=== PATIENT | female | born 1990 | race Caucasian/White ===

== ENCOUNTER 2021-08-10 05:06 | Observation (INO) | payer MEDICAID, SELFPAY ==
[2021-08-10 05:16] VITALS: BP 150/90; PULSE 88; RESP 18; TEMP 36.6; O2SAT 97
[2021-08-10 05:41] LABS: Abs Immature Grans 0.05 10^3/uL (0.0-0.06); Absolute Basophil Count 0.05 10^3/uL (0.0-0.2); Absolute Eosinophil Count 0.15 10^3/uL (0.0-0.7); Absolute Lymphocyte Count 2.98 10^3/uL (1.2-3.4); Absolute Monocyte Count 0.96 10^3/uL (0.1-0.8); Basophils % 0.4; Eosinophils % 1.1; HCT 42.7 % (36.0-46.0); HGB 13.8 g/dL (11.2-15.7); Immature Grans % 0.4; Lymphocytes % 21.8; MCH 27.7 pg (27.0-33.0); MCHC 32.3 % (32.0-36.0); MCV 86 fL (80-95); MPV 9.8 fL (8.0-11.0); Neutrophils % 69.3; Platelet Count 308 10^3/uL (130-400); RBC 4.99 10^6/uL (3.93-5.22); RDW 13.5 % (11.7-14.6); RDW-SD 42.1 fL; WBC 13.67 10^3/uL (4.4-10.8)
[2021-08-10 05:42] LABS: Absolute Neutrophil Count 9.47 10^3/uL (1.2-6.7)
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
[2021-08-10 06:01] LABS: Salicylate 3.7 mg/dL (<2.8)
[2021-08-10 06:03] LABS: Acetaminophen < 2 ug/mL (10-30)
[2021-08-10 06:06] LABS: ALT 43 U/L (14-59); AST 28 U/L (15-37); Albumin 3.6 g/dL (3.4-5.0); Alkaline Phosphatase 100 U/L (46-116); Anion Gap 8.1 mmol/L (3-11); BUN 10 mg/dL (7-18); Bilirubin, Total 0.5 mg/dL (0.2-1.0); CO2 28.9 mmol/L (21.0-32.0); CREATININE 0.7 mg/dL (0.55-1.02); Calcium 8.9 mg/dL (8.5-10.1); Chloride 102 mmol/L (98-107); Glucose 90 mg/dL (74-106); Potassium 3.1 mmol/L (3.5-5.1); Sodium 139 mmol/L (136-145); TSH (W/Ref FT4) 1.79 uIU/mL (0.36-3.74); Total Protein 7.4 g/dL (6.4-8.2)
[2021-08-10 06:11] LABS: ETHANOL BLOOD < 3.0 mg/dL (<10)
--- NOTE | 2021-08-10 09:23 | ED.PROG_ITS ---
Date of service: 08/10/21 Time of Service: 08:25 Medical Decision Making pt with psychosis and has flight of ideas and irrational thinking, no si/hi currently voluntary. Will continue to monitor until psych placement is found pt seen again by mental health and do not feel she should be on voluntary status given her irrational thoughts. Asked patient if she is willing to seek voluntary placement and she would not give a sensical answer so EE was done. Sign Out Sign Out Data: Sign Out Comment: Psychotic episode, mental health will reassess. Patient currently here voluntarily, but should not be allowed to leave secondary to acute psychosis Last updated by Vito Quintana DO at 08/10/21 07:53 Discharge Plan Disposition Patient Disposition: STILL A PATIENT Condition: Stable Discharge Details Clinical Impression: Psychosis Primary Care Provider: Tosha,[facility] ED Provider: Stephen Elliott Home Meds and New Rx's Prescriptions: No Action No Known Home Meds
--- NOTE | 2021-08-10 10:03 | CMSP_ITS ---
- If Service Date Differs Date of service: 08/10/21 Time of Service: 10:03 Care Management Safety Plan Status: Voluntary - Reason for Wait Reason for Wait: Inpatient Admission VOLUNTARY FOR INPATIENT PSYCHIATRIC STABILIZATION. Patient is appropriate in all interactions since arriving at [facility]; Pt has demonstrated appropriate coping and communication skills, has articulated his or her needs and concerns and is fully engaged during staff interactions. A huddle is held at 10:[address] Elliott, ED provider, Akanksha, nursing supervisor travel trailer, Tatianna, charge nurse, SANGEETHA Jones, and ERNIE Pelayo, in attendance. Safety plan has been established with patient, and care team, to adhere to patient goals, identify restrictions based on behavioral status, address nutrition, and determine allowed personal belongings, tools for hygiene and personal care. Determine level of activity including ambulation, level of supervision, visitors, and determine privileges based on behaviors and level of engagement by pt. SAFETY PLAN: 1. Will remain on suicide precautions. In Paper Clothes 2. Will remain in room under direct supervision of one-on-one staff at all times provided by CPSO, BISHOP, TIRE SERVICE SUPERVISOR arbitrator. 3. May have paper cups, plates, finger foods as well as a cardboard spoon with which to eat meals. 4. Follow [facility] Management of the Admitted Behavioral Health Patient policy. 5. Comfort bath system only. 6. No personal belongings. 7. Visitors-none at this time. 8. Activities: soft cart items, music tablet, television, and other activities at RN discretion. 9. Bathroom privileges with escort in the ED, available in room without limitation on M/S. 10. Phone: may use [employer] phone at RN discretion. 11. Due to VOLUNTARY status, if patient wishes to leave [facility], staff will contact [facility] Crisis Screener ([phone]) and On-Call Music Composition Teacher ([phone]) as soon as possible. In the event of elopement, notify [facility] Police ([phone]). Patient is currently voluntarily at [facility] and seeking inpatient admission when a bed becomes available. [facility] Frontline Chief Electrician will continue seeking placement. Please contact the Support Specialist Music Composition Teacher ([phone]) and [facility] Chief Electrician ([phone]) for any needed changes in the Safety Plan. Safety plan has been provided to interdepartmental care team.
[2021-08-10 12:18] LABS: Bilirubin Negative (Negative); Blood Negative (Negative); Clarity Clear (Clear); Glucose Negative (Negative); Ketones 40 mg/dL (Negative); Leukocyte Esterase Negative (Negative); Nitrite Negative (Negative); Specific Gravity 1.025 (1.005-1.025); Urobilinogen 0.2 EU/dL (Up TO 0.2); pH 6.5 (5-8)
[2021-08-10 12:34] LABS: *AMPHETAMINES SCREEN URINE Negative (Negative); *BARBITURATES SCREEN URINE Negative (Negative); *BENZODIAZEPINES SCREEN URINE Negative (Negative); Cannabinoids THC Negative (Negative); Cocaine Screen,Urine Negative (Negative); METHADONE URINE SCREEN Negative (Negative); OPIATES URINE SCREEN Negative (Negative)
[2021-08-10 12:35] LABS: Tricyclic Antidepressants Negative (Negative)
--- NOTE | 2021-08-10 13:38 | CMSP_ITS ---
- If Service Date Differs Date of service: 08/10/21 Time of Service: 13:38 Care Management Safety Plan Status: Involuntary - Reason for Wait Reason for Wait: Inpatient Admission INVOLUNTARY FOR INPATIENT PSYCHIATRIC STABILIZATION. Safety plan has been established to meet the needs of the patient, and consideration of the care team, to adhere to patient goals, identify restrictions based on behavioral status, address nutrition, and determine allowed personal belongings, tools for hygiene and personal care. Determine level of activity including ambulation, level of supervision, visitors, and determine privileges based on behaviors and level of engagement by pt. SAFETY PLAN: 1. Will remain on SI/HI precautions. In Paper Clothes 2. Will remain in room under direct supervision of one-on-one staff at all times provided by CPSO, LENS COATING TECHNICIAN, RETORT FURNACE HELPER information technology manager. 3. May have paper cups, plates, finger foods as well as a cardboard spoon with which to eat meals. 4. Follow [facility] Management of the Admitted Behavioral Health Patient policy. 5. Comfort bath system only. 6. No personal belongings 7. Visitors: No visitors at this time. 8. Activities: Soft cart items, music tablet, television, and other activities at RN discretion. 9. Bathroom privileges with escort in the ED. 10. Phone: May use [employer] phone at RN discretion. 11. Due to INVOLUNTARY status, patient is being held at [facility] by the Department of Mental Health ([facility]) until 2nd certification by [facility] Psychiatrist can be performed (within 24 hours). Staff will provide de-escalation support (CPI) as needed. If patient wishes to leave [facility], staff will contact [facility] Crisis Screener ([phone]) and On-Call Bottle Filler ([phone]) as soon as possible. In the event of elopement, notify [place] State Police ([phone]). Patient is currently involuntarily at [facility]. [facility] Frontline Air Pollution Analyst will continue seeking placement. Please contact the Program Director Air Talent Bottle Filler ([phone]) for any needed changes to Safety Plan. Safety plan has been provided to interdepartmental care team. Patient will be transported by [facility] at time of discharge.
--- NOTE | 2021-08-10 13:38 | PDOC.CMSAFED ---
- If Service Date Differs Date of service: 08/10/21 Time of Service: 13:38 Care Management Safety Plan Status: Involuntary - Reason for Wait Reason for Wait: Inpatient Admission INVOLUNTARY FOR INPATIENT PSYCHIATRIC STABILIZATION. Safety plan has been established to meet the needs of the patient, and consideration of the care team, to adhere to patient goals, identify restrictions based on behavioral status, address nutrition, and determine allowed personal belongings, tools for hygiene and personal care. Determine level of activity including ambulation, level of supervision, visitors, and determine privileges based on behaviors and level of engagement by pt. SAFETY PLAN: 1. Will remain on SI/HI precautions. In Paper Clothes 2. Will remain in room under direct supervision of one-on-one staff at all times provided by CPSO, PROPERTY SITE MANAGER, PROCESS CONTROL PROGRAMMER port patrol officer. 3. May have paper cups, plates, finger foods as well as a cardboard spoon with which to eat meals. 4. Follow [facility] Management of the Admitted Behavioral Health Patient policy. 5. Comfort bath system only. 6. No personal belongings 7. Visitors: No visitors at this time. 8. Activities: Soft cart items, music tablet, television, and other activities at RN discretion. 9. Bathroom privileges with escort in the ED. 10. Phone: May use [employer] phone at RN discretion. 11. Due to INVOLUNTARY status, patient is being held at [facility] by the Department of Mental Health ([facility]) until 2nd certification by [facility] Psychiatrist can be performed (within 24 hours). Staff will provide de-escalation support (CPI) as needed. If patient wishes to leave [facility], staff will contact [facility] Crisis Screener ([phone]) and On-Call Oracle Applications Analyst ([phone]) as soon as possible. In the event of elopement, notify [place] State Police ([phone]). Patient is currently involuntarily at [facility]. [facility] Frontline Community Service Aide will continue seeking placement. Please contact the Doughnut Icer Machine Oracle Applications Analyst ([phone]) for any needed changes to Safety Plan. Safety plan has been provided to interdepartmental care team. Patient will be transported by [employer] at time of discharge.
[2021-08-10 18:26] LABS: Source Nasal/Nares
[2021-08-10 19:18] LABS: COVID-19 PCR Negative (Negative)
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
--- NOTE | 2021-08-11 02:28 | NUR.NOTE ---
Patient mother Zenia ModiGydq-[phone].Nursing Note:
[2021-08-11 08:55] VITALS: BP 129/90; PULSE 83; RESP 18; TEMP 36.6; O2SAT 94
--- NOTE | 2021-08-11 09:59 | PDOC.MHCN_ITS ---
Date of service: 08/11/21 Time of Service: 08:00 Mental Health Crisis Note Presenting Issue How did you arrive at the ED and why did you come: Client is on EE status per [facility] and [facility]. Precipitating Factors Client denies SI/HI, but is delusional. Disposition BEHAVIOR: Engaged, hostile, irritable EYE CONTACT: Minimal MOOD: Appears to be irritable. AFFECT: Flat. APPETITE: Client reports she is eating okay. SLEEP(trouble falling/staying asleep: Client reports waking up in the middle of the night. Plan Referrals have been sent to , [facility], [place], and [facility]. Client mother called last night to report this client was a [place] person [place] and is diagnosed with schizophrenia but unmedicated. Signature Clinician's Name/Title: Buffy Lennon ESC
--- NOTE | 2021-08-11 17:24 | PDOC.CMSAFED ---
- If Service Date Differs Date of service: 08/11/21 Time of Service: 17:24 Care Management Safety Plan Status: Involuntary - Reason for Wait Reason for Wait: Inpatient Admission Safety plan has been established to meet the needs of the patient, and consideration of the care team, to adhere to patient goals, identify restrictions based on behavioral status, address nutrition, and determine allowed personal belongings, tools for hygiene and personal care. Determine level of activity including ambulation, level of supervision, visitors, and determine privileges based on behaviors and level of engagement by pt. SAFETY PLAN: 1. Will remain on SI/HI precautions. In Paper Clothes 2. Will remain in room under direct supervision of one-on-one staff at all times provided by CPSO; BISHOP, HOME CARE MUSIC THERAPIST packaging inspector. 3. May have paper cups, plates, finger foods as well as a cardboard spoon 4. Follow [facility] Management of the Admitted Behavioral Health Patient policy. 5. Comfort bath system only. 6. No personal belongings 7. Visitors: No visitors at this time 8. Activities: Soft cart items, music tablet, television, and other activities at RN discretion. 9. Bathroom privileges with supervision 10. Phone: Danica use [employer] phone at nursing's discretion 11. Due to INVOLUNTARY status, patient is being held at [facility] by the Department of Mental Health ([facility]) until 2nd certification by [facility] Psychiatrist can be performed (within 24 hours). Staff will provide de-escalation support (CPI) as needed. If patient wishes to leave [facility], staff will contact [facility] Crisis Screener ([phone]) and On-Call Paper Handler ([phone]) as soon as possible. In the event of elopement, notify [place] State Police ([phone]). Patient is currently involuntarily at [facility]. [facility] Frontline Health Insurance Assessor will continue seeking placement. Please contact the Ip Litigation Associate Paper Handler ([phone]) for any needed changes to Safety Plan. Safety plan has been provided to interdepartmental care team. Patient will be transported by [facility] at time of discharge.
--- NOTE | 2021-08-11 18:38 | CMPROGNOTE_ITS ---
- If Service Date Differs Date of service: 08/11/21 Time of Service: 18:38 Care Management Progress Note S/O: Nelson was sitting up in bed when CM met with her. She has been cooperative with staff and is eating and sleeping well. She was pleasant and appropriate in her interaction with CM, maintaining good eye contact. No beds are currently available at any of the [place] psychiatric hospitals. Per [facility], Nelson has been reported as a missing person in [place]. This information was reportedly received from Nelson's mother today. P: Nelson is awaiting placement at a psychiatric hospital in [place]. She is in Involuntary status. No beds are currently available.
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
--- NOTE | 2021-08-11 21:59 | PDOC.MHCN_ITS ---
Date of service: 08/11/21 Time of Service: 20:45 Mental Health Crisis Note Presenting Issue How did you arrive at the ED and why did you come: Patient is currently on involuntary status and awaiting placement. Declared as missing person in NH with dx of schizophrenia. 2nd [facility] screening. Precipitating Factors Client denied SI/HI - she knocked over telehealth device on suicide inquiry and full assessment could not be completed. Disposition BEHAVIOR: Uncooperative EYE CONTACT: Poor MOOD: Labile AFFECT: Labile APPETITE: N/A SLEEP(trouble falling/staying asleep: N/A Plan The patient will remain at [facility] on involuntary status and await recommended treatment. She will be assessed two times per day by [facility] until placement is secured. If acuity level decreases safety discharge planning back to the community can be considered per discretion of [facility]MHP and attending medical provider. Signature Clinician's Name/Title: Lincoln Willis [facility] clinician / [facility]
--- NOTE | 2021-08-12 12:40 | NUR.NOTE ---
pt had her consult with mental health. pts mom is here and in hopes of visiting her daughter. Amanda is going to check with her boss and change the safety plan to accomadate mom in the visitor list r Nursing Note:
--- NOTE | 2021-08-12 16:44 | CMSP_ITS ---
- If Service Date Differs Date of service: 08/12/21 Time of Service: 16:44 Care Management Safety Plan Status: Involuntary - Guarianship if Applicable Guardianship: Other - Reason for Wait Reason for Wait: Inpatient Admission Safety plan has been established to meet the needs of the patient, and consideration of the care team, to adhere to patient goals, identify restrictions based on behavioral status, address nutrition, and determine allowed personal belongings, tools for hygiene and personal care. Determine level of activity including ambulation, level of supervision, visitors, and determine privileges based on behaviors and level of engagement by pt. SAFETY PLAN: 1. Will remain on SI/HI precautions. In Paper Clothes 2. Will remain in room under direct supervision of one-on-one staff at all times provided by CPSO; BISHOP, DOCUMENT REVIEW SPECIALIST glass blowing instructor. 3. May have paper cups, plates, finger foods as well as a cardboard spoon 4. Follow [facility] Management of the Admitted Behavioral Health Patient policy. 5. Comfort bath system. May shower at nursing's discretion with supervision. 6. No personal belongings 7. Visitors: Mother may visit. 8. Activities: Soft cart items, music tablet, television, and other activities at RN discretion. 9. Bathroom privileges with supervision 10. Phone: May use [employer] phone at nursing's discretion. 11. Due to INVOLUNTARY status, patient is being held at [facility] by the Department of Mental Health ([facility]) until 2nd certification by [facility] Psychiatrist can be performed (within 24 hours). Staff will provide de-escalation support (CPI) as needed. If patient wishes to leave [facility], staff will contact [facility] Crisis Screener ([phone]) and On-Call Customer Service Leader ([phone]) as soon as possible. In the event of elopement, notify [place] [employer] ([phone]). Patient is currently involuntarily at [facility]. [facility] Frontline Fur Tanner will continue seeking placement. Please contact the Web Marketing Strategist Customer Service Leader ) for any needed changes to Safety Plan. Safety plan has been provided to interdepartmental care team. Patient will be transported by [employer] at time of discharge.
--- NOTE | 2021-08-12 16:44 | PDOC.CMSAFED ---
- If Service Date Differs Date of service: 08/12/21 Time of Service: 16:44 Care Management Safety Plan Status: Involuntary - Guarianship if Applicable Guardianship: Other - Reason for Wait Reason for Wait: Inpatient Admission Safety plan has been established to meet the needs of the patient, and consideration of the care team, to adhere to patient goals, identify restrictions based on behavioral status, address nutrition, and determine allowed personal belongings, tools for hygiene and personal care. Determine level of activity including ambulation, level of supervision, visitors, and determine privileges based on behaviors and level of engagement by pt. SAFETY PLAN: 1. Will remain on SI/HI precautions. In Paper Clothes 2. Will remain in room under direct supervision of one-on-one staff at all times provided by CPSO; BISHOP, CREW MESS ATTENDANT multiple tube winding machine operator. 3. May have paper cups, plates, finger foods as well as a cardboard spoon 4. Follow [facility] Management of the Admitted Behavioral Health Patient policy. 5. Comfort bath system. May shower at nursing's discretion with supervision. 6. No personal belongings 7. Visitors: Mother may visit. 8. Activities: Soft cart items, music tablet, television, and other activities at RN discretion. 9. Bathroom privileges with supervision 10. Phone: May use [employer] phone at nursing's discretion. 11. Due to INVOLUNTARY status, patient is being held at [facility] by the Department of Mental Health ([facility]) until 2nd certification by [facility] Psychiatrist can be performed (within 24 hours). Staff will provide de-escalation support (CPI) as needed. If patient wishes to leave [facility], staff will contact [facility] Crisis Screener ([phone]) and On-Call Freight Coordinator ([phone]) as soon as possible. In the event of elopement, notify [place] State [employer] ([phone]). Patient is currently involuntarily at [facility]. [facility] Frontline Online Content Coordinator will continue seeking placement. Please contact the Hardwood Floor Installation Helper Freight Coordinator ([phone]) for any needed changes to Safety Plan. Safety plan has been provided to interdepartmental care team. Patient will be transported by [employer] at time of discharge.
--- NOTE | 2021-08-12 16:47 | CMPROGNOTE_ITS ---
- If Service Date Differs Date of service: 08/12/21 Time of Service: 16:47 Care Management Progress Note S/O: Nelson was sitting up in bed when CM met with her. She has been cooperative with staff and compliant with rules and routines. She did have a brief period where she became upset when she was not able to use the bathroom when she needed to (occupied) but was able to be redirected. Nelson's mother came to visit today and Nelson shared that she enjoyed the visit. Her mother is a strong source of support for her. Apparently her mother informed the ED staff that Nelson is in the custody of the state [facility]. It is not clear in what capacity. Her mother also shared that she was hospitalized once. She will try to remember the name of the hospital so that records can be obtained. P: Nelson is awaiting placement at a psychiatric hospital in [place]. She is in Involuntary status. No beds are currently available. - Guardianship if Applicable Guardianship: Other
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
--- NOTE | 2021-08-13 01:55 | NUR.NOTE ---
Nursing Note: Patient's sister, Irma, phone number is [phone].
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
--- NOTE | 2021-08-13 10:53 | NUR.NOTE ---
Nursing Note: Faxed a request to [facility] for a discharge summary/medication list from 5 to 7 yrs ago. Spoke to Akanksha in Medical Records and she stated that the person doing the faxes would get to it as soon as they could. Holly Fonseca Main # [phone] Med Rec # [phone] Med Rec
--- NOTE | 2021-08-13 12:22 | PDOC.MHCN_ITS ---
Date of service: 08/13/21 Time of Service: 11:00 Mental Health Crisis Note Presenting Issue How did you arrive at the ED and why did you come: Patient is currently on involuntary status at [facility] and awaiting placement. Declared as missing person in NH with dx of schizophrenia, presented with acute psychotic symptoms during mental health evaluation conducted on 6.3. *1st [facility] screening for today 6.6 Precipitating Factors The client continues to present with acute psychotic symptoms (delusions - grandiosity) and endorses tangential thinking with poor insight and judgment. She has refused mental health medications and stated that medications are against her mormon. She denied SI/HI, intent or plan. Disposition BEHAVIOR: Unremarkable EYE CONTACT: Poor MOOD: I'm feeling good AFFECT: Labile / expansive APPETITE: Unchanged SLEEP(trouble falling/staying asleep: Unchanged Plan The client will remain on involuntary status and await recommended in-patient treatment. [facility] will provide twice daily [facility] mental status and disposition ass essments to determine continued need for placement. If acuity level decreases or level of care requirements change, a safety plan for discharge back to the community can be considered per discretion of [facility] and attending physician. Referrals: BR - Director of awaiting callback from [facility] concerning acuity level determination [facility], - Under review. [facility] - Waiting for callback on status. Signature Clinician's Name/Title: Lincoln Willis [facility] clinician - ANGELA, [facility]
--- NOTE | 2021-08-13 12:22 | PDOC.MHCN ---
Date of service: 08/13/21 Time of Service: 11:00 Mental Health Crisis Note Presenting Issue How did you arrive at the ED and why did you come: Patient is currently on involuntary status at [facility] and awaiting placement. Declared as missing person in NH with dx of schizophrenia, presented with acute psychotic symptoms during mental health evaluation conducted on 6.3. *1st [facility] screening for today 6.6 Precipitating Factors The client continues to present with acute psychotic symptoms (delusions - grandiosity) and endorses tangential thinking with poor insight and judgment. She has refused mental health medications and stated that medications are against her muslim. She denied SI/HI, intent or plan. Disposition BEHAVIOR: Unremarkable EYE CONTACT: Poor MOOD: I'm feeling good AFFECT: Labile / expansive APPETITE: Unchanged SLEEP(trouble falling/staying asleep: Unchanged Plan The client will remain on involuntary status and await recommended in-patient treatment. [facility] will provide twice daily [facility] mental status and disposition assessments to determine continued need for placement. If acuity level decreases or level of care requirements change, a safety plan for discharge back to the community can be considered per discretion of [facility] and attending physician. Referrals: BR - Director of awaiting callback from [facility] concerning acuity level determination [place], - Under review. [facility] - Waiting for callback on status. Signature Clinician's Name/Title: Lincoln Willis [facility] clinician - ANGELA, [facility]
--- NOTE | 2021-08-13 12:58 | CMSP_ITS ---
- If Service Date Differs Date of service: 08/13/21 Time of Service: 12:58 Care Management Safety Plan Status: Involuntary - Reason for Wait Reason for Wait: Inpatient Admission Safety plan has been established to meet the needs of the patient, and consideration of the care team, to adhere to patient goals, identify restrictions based on behavioral status, address nutrition, and determine allowed personal belongings, tools for hygiene and personal care. Determine level of activity including ambulation, level of supervision, visitors, and determine privileges based on behaviors and level of engagement by pt. A huddle is held at 15:45 with Olimpia, nursing supervisor assembly and packing, SANGEETHA Davila, and ERNIE Pelayo, in attendance. SAFETY PLAN: 1. Will remain on SI/HI precautions. In Paper Clothes 2. Will remain in room under direct supervision of one-on-one staff at all times provided by CPSO, BISHOP, INSURANCE CLAIMS SUPERVISOR electrolysis needle operator. 3. May have paper cups, plates, finger foods as well as a cardboard spoon with which to eat meals. 4. Follow [facility] Management of the Admitted Behavioral Health Patient policy. 5. Comfort bath system or may shower at nursing's discretion with supervision. 6. No personal belongings 7. Visitors: Mother may visit. 8. Activities: Soft cart items, music tablet, television without remote, and other activities at RN discretion. Television remote is to remain in CPSO's control at all times. 9. Bathroom privileges with supervision 10. Phone: May use [employer] hospital phone at nursing's discretion. 11. Due to INVOLUNTARY status, patient is being held at [facility] by the Department of Mental Health ([facility]). The 2nd certification by [facility] Psychiatrist was performed on 08/10/2021 and the involuntary status was upheld. Staff will provide de- escalation support (CPI) as needed. If patient wishes to leave [facility], staff will contact [facility] Crisis Screener ([phone]) and On-Call Redevelopment Manager ([phone]) as soon as possible. In the event of elopement, notify [place] Police ([phone]). Patient is currently involuntarily at [facility]. [facility] Frontline Upper Extremity Surgeon will continue seeking placement. Please contact the Sign Erector Redevelopment Manager ([phone]) for any needed changes to Safety Plan. Safety plan has been provided to interdepartmental care team. Patient will be transported by [facility] at time of discharge.
--- NOTE | 2021-08-13 12:58 | PDOC.CMSAFED ---
- If Service Date Differs Date of service: 08/13/21 Time of Service: 12:58 Care Management Safety Plan Status: Involuntary - Reason for Wait Reason for Wait: Inpatient Admission Safety plan has been established to meet the needs of the patient, and consideration of the care team, to adhere to patient goals, identify restrictions based on behavioral status, address nutrition, and determine allowed personal belongings, tools for hygiene and personal care. Determine level of activity including ambulation, level of supervision, visitors, and determine privileges based on behaviors and level of engagement by pt. A huddle is held at 15:45 with Olimpia, nursing travel information center supervisor, SANGEETHA Davila, and ERNIE Pelayo, in attendance. SAFETY PLAN: 1. Will remain on SI/HI precautions. In Paper Clothes 2. Will remain in room under direct supervision of one-on-one staff at all times provided by CPSO, BISHOP, CINNAMON GRINDER government instructor. 3. May have paper cups, plates, finger foods as well as a cardboard spoon with which to eat meals. 4. Follow [facility] Management of the Admitted Behavioral Health Patient policy. 5. Comfort bath system or may shower at nursing's discretion with supervision. 6. No personal belongings 7. Visitors: Mother may visit. 8. Activities: Soft cart items, music tablet, television without remote, and other activities at RN discretion. Television remote is to remain in CPSO's control at all times. 9. Bathroom privileges with supervision 10. Phone: May use [facility] hospital phone at nursing's discretion. 11. Due to INVOLUNTARY status, patient is being held at [facility] by the Department of Mental Health ([facility]). The 2nd certification by [facility] Psychiatrist was performed on 08/10/2021 and the involuntary status was upheld. Staff will provide de-escalation support (CPI) as needed. If patient wishes to leave [facility], staff will contact [facility] Crisis Screener ([phone]) and On-Call Bean Roaster ([phone]) as soon as possible. In the event of elopement, notify [place] [employer] Police ([phone]). Patient is currently involuntarily at [facility]. [facility] Frontline Reading Specialist will continue seeking placement. Please contact the Fancy Packer Bean Roaster ([phone]) for any needed changes to Safety Plan. Safety plan has been provided to interdepartmental care team. Patient will be transported by [facility] at time of discharge.
[2021-08-13] MEDS: LORazepam 1 MG TAB (13:42)
[2021-08-13] MEDS: Haloperidol 5 MG TAB (13:43)
--- NOTE | 2021-08-13 16:04 | CMPROGNOTE_ITS ---
- If Service Date Differs Date of service: 08/13/21 Time of Service: 16:04 Care Management Progress Note S/O: Nelson is walking around her room when CM comes to meet with her. She is pleasant and asks what she can do for CM today. She reports eating well and says her sleep is sometimes interrupted because of visions. She talks about [employer] and shares how they talk to one another in codes. She states she hasn't been able to watch the news since being at the hospital, so she doesn't know what's going on with him right now. She tells CM that she is currently in time-out because she tried to [employer] a bra out of masks, which she now understands is not allowed. Nelson makes intermittent eye contact, speech is pressured, thought content has grandiose delusions, and she continues to deny suicidal or homicidal ideation. A: Nelson is a 31 year old female who presents to the ED on 08/10/21 due to psychosis. P: [facility], [facility], [facility], and [facility] for review. Nelson will remain at [facility] on involuntary status and will be reassessed twice daily by [facility] until either a psychiatric bed can be secured for her or her acuity level decreases and she can be discharged back to the community on a safety plan. CM will continue to follow. - Status Status: Involuntary - Guardianship if Applicable Guardianship: Other - Reason for Wait Reason for Wait: Inpatient Admission
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
--- NOTE | 2021-08-14 11:19 | PDOC.MHCN ---
Date of service: 08/14/21 Time of Service: 10:30 Mental Health Crisis Note Presenting Issue How did you arrive at the ED and why did you come: Patient is currently on involuntary status at [facility] and awaiting placement. Declared as missing person in NH with dx of schizophrenia, presented with acute psychotic symptoms during mental health evaluation conducted on 6.3. Client is seen for 1st daily [facility] screening. Precipitating Factors No significant changes in presentation from 6.6. Client appeared slightly more agitated today, otherwise appeared coherent and cooperative. Per [facility] staff, a Nico Salmeron was called 6.6 after the client attempted to fashion a bra with surgical masks. She stated today I wanted to exercise and didn't want my boobies flying around. No SI/HI, intent or plan endorsed. Disposition BEHAVIOR: Cooperative EYE CONTACT: Poor MOOD: Good AFFECT: Labile / agitated APPETITE: No changes SLEEP(trouble falling/staying asleep: No changes Plan No significant changes in presentation as compared to 6.6. A nico salmeron was called 6.[address] Elliott: Client obtained masks and attempted to fashion a bra and became escalated (shouting, threatening staff) when staff took items away. She could not be verbally descalated until she was warned that she would be given IM meds. The client will remain on involuntary status and await recommended in-patient treatment. [facility] will provide twice daily mental status and disposition assessments to determine continued need for placement. If acuity level decreases or level of care requirements change, a safety plan for discharge back to the community can be considered per discretion of [facility] and attending physician. Referrals [facility] - Declined due to [place] insurance. If [facility] presents case as a level 1, will reconsider. [facility] - Active, under review. [facility] - Waiting callback from charge nurse / admin. Signature Clinician's Name/Title: Lincoln Willis, [facility] clinician, BA, [facility]
--- NOTE | 2021-08-14 12:31 | CMSP_ITS ---
- If Service Date Differs Date of service: 08/14/21 Time of Service: 12:31 Care Management Safety Plan Status: Involuntary - Guarianship if Applicable Guardianship: Other - Reason for Wait Reason for Wait: Inpatient Admission Safety plan has been established to meet the needs of the patient, and consideration of the care team, to adhere to patient goals, identify restrictions based on behavioral status, address nutrition, and determine allowed personal belongings, tools for hygiene and personal care. Determine level of activity including ambulation, level of supervision, visitors, and determine privileges based on behaviors and level of engagement by pt. No change in plan, per discussion with SANGEETHA Mosqueda. SAFETY PLAN: 1. Will remain on SI/HI precautions. In Paper Clothes 2. Will remain in room under direct supervision of one-on-one staff at all times provided by CPSO, NUCLEAR EQUIPMENT RESEARCH ENGINEER, LAUNDRY EQUIPMENT OPERATOR atmospheric sciences professor. 3. May have paper cups, plates, finger foods as well as a cardboard spoon with which to eat meals. 4. Follow [facility] Management of the Admitted Behavioral Health Patient policy. 5. Comfort bath system or may shower at nursing's discretion with supervision. 6. No personal belongings 7. Visitors: Mother may visit at RN discretion. 8. Activities: Soft cart items, music tablet, television without remote, and other activities at RN discretion. Television remote is to remain in CPSO's control at all times. 9. Bathroom privileges with supervision 10. Phone: May use [employer] hospital phone at nursing's discretion. 11. Due to INVOLUNTARY status, patient is being held at [facility] by the Department of Mental Health ([facility]). The 2nd certification by [facility] Psychiatrist was performed on 08/10/2021 and the involuntary status was upheld. Staff will provide de-escal ation support (CPI) as needed. If patient wishes to leave [facility], staff will contact [facility] Crisis Screener ([phone]) and On-Call Automatic Beam Warper Tender ([phone]) as soon as possible. In the event of elopement, notify [place] [employer] Police ([phone]). Patient is currently involuntarily at [facility]. [facility] Frontline Operating Table Assembler will continue seeking placement. Please contact the Pleat Patternmaker Automatic Beam Warper Tender ) for any needed changes to Safety Plan. Safety plan has been provided to interdepartmental care team. Patient will be transported by marketing forecaster at time of discharge.
--- NOTE | 2021-08-14 12:31 | PDOC.CMSAFED ---
- If Service Date Differs Date of service: 08/14/21 Time of Service: 12:31 Care Management Safety Plan Status: Involuntary - Guarianship if Applicable Guardianship: Other - Reason for Wait Reason for Wait: Inpatient Admission Safety plan has been established to meet the needs of the patient, and consideration of the care team, to adhere to patient goals, identify restrictions based on behavioral status, address nutrition, and determine allowed personal belongings, tools for hygiene and personal care. Determine level of activity including ambulation, level of supervision, visitors, and determine privileges based on behaviors and level of engagement by pt. No change in plan, per discussion with SANGEETHA Mosqueda. SAFETY PLAN: 1. Will remain on SI/HI precautions. In Paper Clothes 2. Will remain in room under direct supervision of one-on-one staff at all times provided by CPSO, FACTORY CLERK, SHUTTLE TRUCK DRIVER gristmill operator. 3. May have paper cups, plates, finger foods as well as a cardboard spoon with which to eat meals. 4. Follow [facility] Management of the Admitted Behavioral Health Patient policy. 5. Comfort bath system or may shower at nursing's discretion with supervision. 6. No personal belongings 7. Visitors: Mother may visit at RN discretion. 8. Activities: Soft cart items, music tablet, television without remote, and other activities at RN discretion. Television remote is to remain in CPSO's control at all times. 9. Bathroom privileges with supervision 10. Phone: May use [employer] hospital phone at nursing's discretion. 11. Due to INVOLUNTARY status, patient is being held at [facility] by the Department of Mental Health ([facility]). The 2nd certification by [facility] Psychiatrist was performed on 08/10/2021 and the involuntary status was upheld. Staff will provide de-escalation support (CPI) as needed. If patient wishes to leave [facility], staff will contact [facility] Crisis Screener ([phone]) and On-Call Quality Assurance Auditor ([phone]) as soon as possible. In the event of elopement, notify [place] State Police ([phone]). Patient is currently involuntarily at [facility]. [facility] Frontline Manager Water Wastewater will continue seeking placement. Please contact the Motor Assembler Quality Assurance Auditor ([phone]) for any needed changes to Safety Plan. Safety plan has been provided to interdepartmental care team. Patient will be transported by civil division commander deputy sheriff at time of discharge.
--- NOTE | 2021-08-14 16:01 | PDOC.ERCMPRO ---
- If Service Date Differs Date of service: 08/14/21 Time of Service: 16:02 Care Management Progress Note S/O: Nelson is lying in bed when CM comes to meet with her today. She questions whether she's eaten today but then remembers having breakfast and lunch. Her speech remains pressured and her thought process circumstantial. She continues to deny suicidal or homicidal ideation and continues to refuse medication. A: Nelson is a 31 year old female who presents to the ED on 08/10/21 due to psychosis. P: Referrals are faxed to [facility], [facility], [facility], and [facility] for review. There are no beds available today. Nelson will remain at [facility] on involuntary status and will be reassessed twice daily by [facility] until either a psychiatric bed can be secured for her or her acuity level decreases and she can be discharged back to the community on a safety plan. CM will continue to follow. - Guardianship if Applicable Guardianship: Other
--- NOTE | 2021-08-15 11:31 | PDOC.MHCN ---
Date of service: 08/15/21 Time of Service: 11:31 Mental Health Crisis Note Presenting Issue How did you arrive at the ED and why did you come: Client arrived on 08.10.2021 via a MH Warrant that was executed by this clinician. She was found to be a person in need of treatment. Precipitating Factors Client denied SI and HI today noting this before it was even asked. She is still showing signs of delusions stating I'm like a potato. Disposition BEHAVIOR: Client is engaged but minimal in her answers and stated she would not answer some because she did not want to be rude and wanted to get out of the hospital. Client is reported to be refusing her medications. When asked why she said she is an adult and does not have to take them. I've been living on my own way before this. EYE CONTACT: Client did not make eye contact. MOOD: Client is described over night as not having any issues. AFFECT: Client's affect is flat. APPETITE: I haven't eaten yet because apparently my schedule is not the same as theirs pointing toward the ED staff. SLEEP(trouble falling/staying asleep: Client reported her sleep is fine. Plan Client will remain on EE status pending admission to a psychiatric facility for further evaluation and treatment. Until such time she porfirio be assessed twice daily by [facility] to determine continued need. Signature Clinician's Name/Title: Pebbles Patel MS, [facility] Emergency Services Clinician
--- NOTE | 2021-08-15 11:43 | PDOC.MHCN ---
Date of service: 08/10/21 Time of Service: 11:43 Mental Health Crisis Note Presenting Issue How did you arrive at the ED and why did you come: Client arrived via poice after this clinician executed and MH Warrant. Precipitating Factors Client was denying SI and HI but did report a history of NSSI. Client presents as delusional. Disposition BEHAVIOR: She is observed talking to herself, not making sense and is unable to make decisions on her own for her best interest. EYE CONTACT: Client does not make good eye contact. MOOD: Client's mood appeared agitated but not aggressive. AFFECT: Client's affect is flat. APPETITE: Client reported that she eats fine. SLEEP(trouble falling/staying asleep: Client reported that she has been sleeping fine. Plan Client will remain on EE status pending a second certification that should take place this evening. She will be assessed twice daily by [facility] to determine continued need for involuntary hold. Signature Clinician's Name/Title: Pebbles Patel MS, [facility] Emergency Services Clinician, [facility]
--- NOTE | 2021-08-15 14:58 | CMSP_ITS ---
- If Service Date Differs Date of service: 08/15/21 Time of Service: 14:58 Care Management Safety Plan Status: Involuntary - Guarianship if Applicable Guardianship: Other - Reason for Wait Reason for Wait: Inpatient Admission Safety plan has been established to meet the needs of the patient, and consideration of the care team, to adhere to patient goals, identify restrictions based on behavioral status, address nutrition, and determine allowed personal belongings, tools for hygiene and personal care. Determine level of activity including ambulation, level of supervision, visitors, and determine privileges based on behaviors and level of engagement by pt. No change in plan, per discussion with SANGEETHA Davila. SAFETY PLAN: 1. Will remain on SI/HI precautions. In Paper Clothes 2. Will remain in room under direct supervision of one-on-one staff at all times provided by CPSO, HR COORDINATOR, PATIENT RELATIONS SPECIALIST sales clerk supervisor. 3. May have paper cups, plates, finger foods as well as a cardboard spoon with which to eat meals. 4. Follow [facility] Management of the Admitted Behavioral Health Patient policy. 5. Comfort bath system or may shower at nursing's discretion with supervision. 6. No personal belongings 7. Visitors: Mother may visit at RN discretion. 8. Activities: Soft cart items, music tablet, television without remote, and other activities at RN discretion. Television remote is to remain in CPSO's control at all times. 9. Bathroom privileges with supervision in the ED. 10. Phone: May use [employer] hospital phone at nursing's discretion. 11. Due to INVOLUNTARY status, patient is being held at [facility] by the Department of Mental Health ([facility]). The 2nd certification by [facility] Psychiatrist was performed on 08/10/2021 and the involuntary status was upheld. Staff will provide de- escalation support (CPI) as needed. If patient wishes to leave [facility], staff will contact [facility] Crisis Screener ([phone]) and On-Call Fruit Receiver ([phone]) as soon as possible. In the event of elopement, notify [place] [employer] Police ([phone]). Patient is currently involuntarily at [facility]. [facility] Frontline Supervisor Plate Pasting will continue seeking placement. Please contact the International Guest Coordinator Fruit Receiver ([phone]) for any needed changes to Safety Plan. Safety plan has been provided to interdepartmental care team. Patient will be transported by tire center supervisor at time of discharge.
--- NOTE | 2021-08-15 14:58 | PDOC.CMSAFED ---
- If Service Date Differs Date of service: 08/15/21 Time of Service: 14:58 Care Management Safety Plan Status: Involuntary - Guarianship if Applicable Guardianship: Other - Reason for Wait Reason for Wait: Inpatient Admission Safety plan has been established to meet the needs of the patient, and consideration of the care team, to adhere to patient goals, identify restrictions based on behavioral status, address nutrition, and determine allowed personal belongings, tools for hygiene and personal care. Determine level of activity including ambulation, level of supervision, visitors, and determine privileges based on behaviors and level of engagement by pt. No change in plan, per discussion with SANGEETHA Davila. SAFETY PLAN: 1. Will remain on SI/HI precautions. In Paper Clothes 2. Will remain in room under direct supervision of one-on-one staff at all times provided by CPSO, REHABILITATION SERVICES AIDE, PAINTER AIRCRAFT inspector air carrier. 3. May have paper cups, plates, finger foods as well as a cardboard spoon with which to eat meals. 4. Follow [facility] Management of the Admitted Behavioral Health Patient policy. 5. Comfort bath system or may shower at nursing's discretion with supervision. 6. No personal belongings 7. Visitors: Mother may visit at RN discretion. 8. Activities: Soft cart items, music tablet, television without remote, and other activities at RN discretion. Television remote is to remain in CPSO's control at all times. 9. Bathroom privileges with supervision in the ED. 10. Phone: May use [employer] hospital phone at nursing's discretion. 11. Due to INVOLUNTARY status, patient is being held at [facility] by the Department of Mental Health ([facility]). The 2nd certification by [facility] Psychiatrist was performed on 08/10/2021 and the involuntary status was upheld. Staff will provide de-escalation support (CPI) as needed. If patient wishes to leave [facility], staff will contact [facility] Crisis Screener ([phone]) and On-Call Dredge Pipeman ([phone]) as soon as possible. In the event of elopement, notify [place] [employer] Police ([phone]). Patient is currently involuntarily at [facility]. [facility] Frontline Beet Worker will continue seeking placement. Please contact the Residential Framing Carpenter Dredge Pipeman ([phone]) for any needed changes to Safety Plan. Safety plan has been provided to interdepartmental care team. Patient will be transported by building guard deputy sheriff at time of discharge.
--- NOTE | 2021-08-15 15:08 | CMPROGNOTE_ITS ---
- If Service Date Differs Date of service: 08/15/21 Time of Service: 15:08 Care Management Progress Note S/O: CM meets with Nelson at nursing's request because Nelson has asked that her mother not have access to her medical records. Nelson has since changed her mind and now wants her mom to have access to her information because Nelson believes that her mom is trying to help her get out of the hospital. Of note, Nelson does not currently have a HIPAA on file. She then changes the subject and talks about past relationships, school, and other unrelated topics in great detail. CM will continue to follow A: Nelson is a 31 year old female who presents to the ED on 08/10/21 due to psychosis. P: [facility], [facility], [facility], and [facility] for review. Nelson will remain at [facility] on involuntary status and will be reassessed twice daily by [facility] until either a psychiatric bed can be secured for her or her acuity level decreases and she can be discharged back to the community on a safety plan. CM will continue to support Nelson. - Status Status: Involuntary - Guardianship if Applicable Guardianship: Other - Reason for Wait Reason for Wait: Inpatient Admission
[2021-08-15 17:30] VITALS: BP 129/115; PULSE 86; TEMP 36.2; O2SAT 99
--- NOTE | 2021-08-15 17:50 | PDOC.MHCN ---
Date of service: 08/15/21 Time of Service: 17:50 Mental Health Crisis Note Presenting Issue How did you arrive at the ED and why did you come: Client arrived on 08.10.2021 on a MH Warrant. Precipitating Factors Client denied SI and H this am and was agitated when asked this afternoon. She seems to be a bit clearer today than she was when this clinician first assessed her. Disposition BEHAVIOR: Client is agitated and not wanting to be at the hospital. She reported this am that she does not like the level of activities offered her while at [facility] that she wants to be out exercising and instead she is a potato but that is okay because the potato can unscrew a busted light bulb. This after noon she showed that she had done some math, word searches and listened to music. She was speaking ot her father when this clinician was trying to assess her and this could have lead to the verbal escalation. EYE CONTACT: Eye contact is poor/avoiding. MOOD: Mood is agitated. AFFECT: Affect is congruent with mood. APPETITE: Unable to assess she ended the assessment. SLEEP(trouble falling/staying asleep: Sleep is reported to be good. Plan Client will remain on EE status and be evaluated twice daily by [facility] until placement is found or she is able to safety planned back to the community. No beds available today. Signature Clinician's Name/Title: Pebbles Patel MS, [facility] Emergency Services Clinician, [facility]
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
--- NOTE | 2021-08-16 12:37 | CMSP_ITS ---
- If Service Date Differs Date of service: 08/16/21 Time of Service: 12:37 Care Management Safety Plan Status: Involuntary - Reason for Wait Reason for Wait: Inpatient Admission Safety plan has been established to meet the needs of the patient, and consideration of the care team, to adhere to patient goals, identify restrictions based on behavioral status, address nutrition, and determine allowed personal belongings, tools for hygiene and personal care. Determine level of activity including ambulation, level of supervision, visitors, and determine privileges based on behaviors and level of engagement by pt. No change in plan, per discussion with Diann, nursing supervisor phosphoric acid, and SANGEETHA Jones. SAFETY PLAN: 1. Will remain on SI/HI precautions. In Paper Clothes 2. Will remain in room under direct supervision of one-on-one staff at all times provided by CPSO, BISHOP, DATA WAREHOUSE SPECIALIST visual communications instructor. 3. May have paper cups, plates, finger foods as well as a cardboard spoon with which to eat meals. 4. Follow [facility] Management of the Admitted Behavioral Health Patient policy. 5. Comfort bath system or may shower at nursing's discretion with supervision. 6. No personal belongings with the exception of her dark blue sweatshirt with strings removed. 7. Visitors: Mother may visit at RN discretion. 8. Activities: Soft cart items, music tablet, television without remote, and other activities at RN discretion. Television remote is to remain in CPSO's control at all times. 9. Bathroom privileges with supervision in the ED, may use bathroom in room without limitation on M/S. 10. Phone: May use [place] hospital phone at nursing's discretion. 11. Due to INVOLUNTARY status, patient is being held at [facility] by the Department of Mental Health ([facility]). The 2nd certification by [facility] Psychiatrist was performed on 08/10/2021 and the involuntary status was upheld. Staff will provide de- escalation support (CPI) as needed. If patient wishes to leave [facility], staff will contact [facility] Crisis Screener ([phone]) and On-Call Hiv Prevention Specialist ([phone]) as soon as possible. In the event of elopement, notify [facility] Police ([phone]). Patient is currently involuntarily at [facility]. [facility] Frontline Cured Meats Supervisor will continue seeking placement. Please contact the Ice Cream Mixer Hiv Prevention Specialist ([phone]) for any needed changes to Safety Plan. Safety plan has been provided to interdepartmental care team. Patient will be transported by [facility] at time of discharge.
--- NOTE | 2021-08-16 12:37 | PDOC.CMSAFED ---
- If Service Date Differs Date of service: 08/16/21 Time of Service: 12:37 Care Management Safety Plan Status: Involuntary - Reason for Wait Reason for Wait: Inpatient Admission Safety plan has been established to meet the needs of the patient, and consideration of the care team, to adhere to patient goals, identify restrictions based on behavioral status, address nutrition, and determine allowed personal belongings, tools for hygiene and personal care. Determine level of activity including ambulation, level of supervision, visitors, and determine privileges based on behaviors and level of engagement by pt. No change in plan, per discussion with Diann, nursing filtration supervisor, and SANGEETHA Jones. SAFETY PLAN: 1. Will remain on SI/HI precautions. In Paper Clothes 2. Will remain in room under direct supervision of one-on-one staff at all times provided by CPSO, BISHOP, PRINTING ASSISTANT thermo cementing folder operator. 3. May have paper cups, plates, finger foods as well as a cardboard spoon with which to eat meals. 4. Follow [facility] Management of the Admitted Behavioral Health Patient policy. 5. Comfort bath system or may shower at nursing's discretion with supervision. 6. No personal belongings with the exception of her dark blue sweatshirt with strings removed. 7. Visitors: Mother may visit at RN discretion. 8. Activities: Soft cart items, music tablet, television without remote, and other activities at RN discretion. Television remote is to remain in CPSO's control at all times. 9. Bathroom privileges with supervision in the ED, may use bathroom in room without limitation on M/S. 10. Phone: May use [employer] hospital phone at nursing's discretion. 11. Due to INVOLUNTARY status, patient is being held at [facility] by the Department of Mental Health ([facility]). The 2nd certification by [facility] Psychiatrist was performed on 08/10/2021 and the involuntary status was upheld. Staff will provide de-escalation support (CPI) as needed. If patient wishes to leave [facility], staff will contact [facility] Crisis Screener ([phone]) and On-Call Annual Giving Officer ([phone]) as soon as possible. In the event of elopement, notify [facility] Police ([phone]). Patient is currently involuntarily at [facility]. [facility] Frontline Casino Operations Supervisor will continue seeking placement. Please contact the Garden Implement Mechanic Annual Giving Officer ([phone]) for any needed changes to Safety Plan. Safety plan has been provided to interdepartmental care team. Patient will be [facility] by [facility] at time of discharge.
--- NOTE | 2021-08-16 12:38 | W.PM.HP.N ---
Date of service: 08/16/21 Time of Service: 12:38 Assessment and Plan Assessment and plan (1) Psychosis: Status: Acute Assessment and plan: and alexandria was evaluated by Dr Herbert who recommended zyprexa 10 mg po BID which she has been refusing to take, psychiatry recommends offering at each scheduled time accordingly. recommendations for acute agitation: haloperidol 5 mg, lorazepam 2 mg, diphenhydramine 50 mg IM or PO Q4H PRN She continues to be held here on an EE for inpatient psychiatric care There have been no recent behavioral disturbances, continue safety plan, CPSO and protocols as initiated mental health following. discussed with Dr Zuluaga History of Present Illness History of Present Illness Chief Complaint: psychosis PFSH All Active Problems (Updated 08/13/21 @ 17:54 by Daniel Herbert MD) [place] (Acute) Psychosis (Acute) Social History Smoking/Tobacco Use Status: Current every day Smoking risk assessment performed?: Yes Substance use type: former substance user and heroin Do you feel safe at home: No Do you feel safe in your relationship?: No Meds Allergies and Home Medications Allergies Allergy/AdvReac Type Severity Reaction Status Date / Time No Known Allergies Allergy Unverified 08/10/21 05:29 Home Medications Medication Instructions Recorded Confirmed Type Unknown [No Known Home Meds] 08/10/21 08/10/21 History Exam Const General: cooperative, comfortable and no acute distress Nutritional Appearance: obese Orientation: alert, awake and oriented x3 Limitations: other limitations HENMT Head: normal to inspection, normocephalic and atraumatic Mouth: oral mucosae normal Chest Chest: normal inspection of the chest Resp Effort & Inspection: normal respiratory effort Auscultation: clear to auscultation bilaterally Cardio Rate: regular rate Rhythm: regular rhythm GI Inspection: normal to inspection and obesity Palpation: soft Auscultation: normal bowel sounds Skin General skin exam: no rashes or lesions noted Neuro General: patient alert, patient awake and patient oriented x3 Extrem General: normal to inspection and full ROM Psych Appearance: disheveled Mood: manic mood and paranoid Affect: elated Attitude: cooperative Thought Process: confabulating, flight of ideas and illogical Thought Content: no homicidality and suicidality Insight: poor Judgment: poor Results Labs Result diagrams: 08/10/21 05:30 06/09/22 13:35 Last Vital Signs Temp 36.2 C L 08/15/21 17:30 Pulse 86 08/15/21 17:30 Resp 18 08/11/21 08:55 BP 129/115 H 08/15/21 17:30 Pulse Ox 99 08/15/21 17:30
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
[2021-08-16 13:36] VITALS: BP 121/87; PULSE 96; RESP 16; TEMP 36.9; O2SAT 96
[2021-08-16 13:51] LABS: BUN 15 mg/dL (7-18); CREATININE 0.7 mg/dL (0.55-1.02); Calcium 8.6 mg/dL (8.5-10.1); Chloride 102 mmol/L (98-107); Glucose 112 mg/dL (74-106); Potassium 3.9 mmol/L (3.5-5.1); Sodium 138 mmol/L (136-145)
[2021-08-16 22:22] VITALS: BP 118/76; PULSE 77; RESP 18; TEMP 36.6; O2SAT 98
[2021-08-17 10:00] VITALS: BP 122/72; PULSE 76; RESP 16; TEMP 36.6; O2SAT 98
--- NOTE | 2021-08-17 14:13 | W.PM.PROGNOT ---
Date of Service Date of service: 08/17/21 Time of Service: 14:14 Assessment and Plan Assessment and plan (1) Psychosis: Status: Acute Assessment and plan: and kirit was evaluated by Dr Herbert who recommended zyprexa 10 mg po BID which she has been refusing to take, psychiatry recommends offering at each scheduled time accordingly. recommendations for acute agitation: haloperidol 5 mg, lorazepam 2 mg, diphenhydramine 50 mg IM or PO Q4H PRN She continues to be held here on an EE for inpatient psychiatric care There have been no recent behavioral disturbances, continue safety plan, CPSO and protocols as initiated mental health following. discussed with Dr Zuluaga Subjective Subjective Patient reports: no new complaints, tolerating liquids well, tolerating a regular diet and afebrile Interval history since last seen: no behavioral issues still refusing to take zyprexa Exam Const General: cooperative, comfortable and no acute distress Nutritional Appearance: obese Orientation: alert, awake and oriented x3 Limitations: other limitations HENMT Head: normal to inspection, normocephalic and atraumatic Mouth: oral mucosae normal Chest Chest: normal inspection of the chest Resp Effort & Inspection: normal respiratory effort Auscultation: clear to auscultation bilaterally Cardio Rate: regular rate Rhythm: regular rhythm GI Inspection: normal to inspection and obesity Palpation: soft Auscultation: normal bowel sounds Skin General skin exam: no rashes or lesions noted Neuro General: patient alert, patient awake and patient oriented x3 Extrem General: normal to inspection and full ROM Psych Appearance: disheveled Mood: manic mood and paranoid Affect: elated Attitude: cooperative Thought Process: confabulating, flight of ideas and illogical Thought Content: no homicidality and suicidality Insight: poor Judgment: poor Objective Last Vital Signs Temp 36.6 C 08/16/21 22:22 Pulse 77 08/16/21 22:22 Resp 18 08/16/21 22:22 BP 118/76 08/16/21 22:22 Pulse Ox 98 08/16/21 22:22
--- NOTE | 2021-08-17 14:15 | PDOC.CMSAFE ---
- If Service Date Differs Date of service: 08/17/21 Time of Service: 14:15 Care Management Safety Plan Status: Involuntary - Guarianship if Applicable Guardianship: Other - Reason for Wait Reason for Wait: Inpatient Admission CM spoke with Dr. Orona who verbalized concerns that reportedly [facility] is declining admission stating that patient is uninsured and is not deemed Level 1 by the State [facility]. ERNIE spoke with Sofy Jaime [facility] who reported [facility] a [facility] and therefore able to deny admission. CM reviewed insurance navigation limitations (not a [place] resident) and sent [facility] referral. Abigail of [facility] reported later in the day that [facility] would be supporting Nelson will acquiring [place]. Sofy stated the team would be working on transfer with [place] family and known resources. Krystle Garcia called later in the day to notify that Nelson would need to be voluntarily willing to seek treatment in [place] for transfer to occur. She also stated [facility] would be updated on increases in positive behavior by Nelson over the last few days, as [facility] declined her today due to acuity. DIRECTOR OF SLOT OPERATIONS advised [facility] has a state contract. He also stated Nelson may not be considered Level 1 due to rating system. Nelson was appropriate throughout the day, giggling with staff and talking with her family on the phone. No changes to care plan at this time. Safety plan has been established to meet the needs of the patient, and consideration of the care team, to adhere to patient goals, identify restrictions based on behavioral status, address nutrition, and determine allowed personal belongings, tools for hygiene and personal care. Determine level of activity including ambulation, level of supervision, visitors, and determine privileges based on behaviors and level of engagement by pt. SAFETY PLAN: 1. Will remain on SI/HI precautions. In Paper Clothes 2. Will remain in room under direct supervision of one-on-one staff at all times provided by CPSO, NETWORK DEVELOPMENT COORDINATOR, EXTRACTOR PULLER online content editor. 3. May have paper cups, plates, finger foods as well as a cardboard spoon with which to eat meals. 4. Follow [facility] Management of the Admitted Behavioral Health Patient policy. 5. Comfort bath system or may shower at nursing's discretion with supervision. 6. No personal belongings with the exception of her dark blue sweatshirt with strings removed. 7. Visitors: Mother may visit at RN discretion. 8. Activities: Soft cart items, music tablet, television with remote, and other activities at RN discretion. 9. Bathroom privileges with supervision in the ED, may use bathroom in room without limitation on M/S. 10. Phone: May use cordless hospital phone at nursing's discretion. 11. Due to INVOLUNTARY status, patient is being held at [facility] by the Department of Mental Health ([facility]). The 2nd certification by [facility] Psychiatrist was performed on 08/10/2021 and the involuntary status was upheld. Staff will provide de-escalation support (CPI) as needed. If patient wishes to leave [facility], staff will contact [facility] Crisis Screener ([phone]) and On-Call Lining Caser ([phone]) as soon as possible. In the event of elopement, notify [facility] Police ([phone]). Patient is currently involuntarily at [facility]. [facility] Frontline Honing Machine Operator Production will continue seeking placement. Please contact the Clinical Pharmacologist Lining Caser ([phone]) for any needed changes to Safety Plan. Safety plan has been provided to interdepartmental care team. Patient will be transported by [facility] lead at time of discharge.
--- NOTE | 2021-08-17 14:18 | PDOC.MHCN_ITS ---
Date of service: 08/17/21 Time of Service: 10:00 Mental Health Crisis Note Presenting Issue How did you arrive at the ED and why did you come: Client presented to [facility] ED on 08/10/21 after a MH warrant was executed. Client is currently on EE status and is seen for morning daily assessment by ES recreation program specialist Sofy Jaime. Precipitating Factors Client denies SI/HI Disposition BEHAVIOR: Client is calm and cooperative during assessment. EYE CONTACT: intermittent MOOD: pleasant AFFECT: flat APPETITE: Good SLEEP(trouble falling/staying asleep: Good Plan Client will remain at [facility] on EE status pending admission to an inpatient facility. [facility] has declined due to clients [place] medicaid. [facility] is at capacity. [facility] and [facility] declined at this time due to acuity level, however are reviewing her referrals again as her acuity level is decreasing. Client will be re-assessed 2x daily by [facility] ES until placement can be secured or client is able to safely transition back to her community. Signature Clinician's Name/Title: Krystle Garcia [facility] Emergency Clinician- submitted for ES recreation program specialist Sofy Jaime.
--- NOTE | 2021-08-17 15:02 | PHA.REVIEW ---
Pharmacy Admission Review - Admission Clinical Review (Last Reviewed 08/13/21 @ 17:52 by Daniel Herbert MD) [place] (Acute) Psychosis (Acute) No Known Allergies Allergy (Unverified 08/10/21 05:29) Resuscitation Status Full Code Height 4 ft 10 in Weight 81.647 kg - Renal Dosing Renal Dosing: BUN 15 mg/dL (7-18) 08/16/21 13:35 Creatinine 0.7 mg/dL (0.55-1.02) 08/16/21 13:35 Medications needing adjustments: Reviewed (Crcl ~73.18 mL/min current meds okay) - Anticoagulation Anticoagulation: Hgb 13.8 g/dL (11.2-15.7) 08/10/21 05:30 Hct 42.7 % (36.0-46.0) 08/10/21 05:30 Plt Count 308 10^3/uL (130-400) 08/10/21 05:30 Creatinine 0.7 mg/dL (0.55-1.02) 08/16/21 13:35 DVT Prophylaxis: N/A Therapeutic Anticoagulation: N/A - Opiate Usage Evaluate Pain Scale/Pains Meds: N/A - Relevant Labs Sodium 138 mmol/L (136-145) 08/16/21 13:35 Potassium 3.9 mmol/L (3.5-5.1) 08/16/21 13:35 Chloride 102 mmol/L (98-107) 08/16/21 13:35 Electrolytes, C-Reactive P, ESR: Reviewed - DM Control DM Control: Glucose 112 mg/dL (74-106) H 08/16/21 13:35 Insulin Dosing: N/A - Heart Failure/MD EF%, ERASMO's, B-Blockers, Diuretics: N/A - BP Control If elevated: Reviewed (BP elevated a couple times this admissnion but mostly has been within normal limits.) - Qtc Review If Elevated: N/A - IV to PO Switch IV Medications: Reviewed - Home Meds Home Med List reviewed: Reviewed Relevent Home Meds Not ordered & why?: no known home meds - Current meds Current Medication Order Review: Reviewed - Comments Comments/Follow Ups: Watch BP, labs and for med changes.
--- NOTE | 2021-08-17 16:58 | PDOC.MHCN_ITS ---
Date of service: 08/17/21 Time of Service: 16:58 Mental Health Crisis Note Presenting Issue How did you arrive at the ED and why did you come: Client assessed for 2nd [facility] assessment. Precipitating Factors Client denies SI/HI, intent and plan. Disposition BEHAVIOR: Client is cooperative with assessment and answers all questions that are asked. EYE CONTACT: Good MOOD: normal AFFECT: flat APPETITE: good SLEEP(trouble falling/staying asleep: good Plan Client will be remain at [facility] on EE status pending admission to an inpatient facility. No bed availability today. Signature Clinician's Name/Title: Krystle Garcia [facility] Emergency Clinician
[2021-08-17 19:40] LABS: Abs Immature Grans 0.08 10^3/uL (0.0-0.06); Absolute Lymphocyte Count 3.06 10^3/uL (1.2-3.4); Absolute Monocyte Count 1.25 10^3/uL (0.1-0.8); Basophils % 0.5; Eosinophils % 1.1; HCT 44.3 % (36.0-46.0); HGB 14.6 g/dL (11.2-15.7); Immature Grans % 0.5; Lymphocytes % 20.6; MCH 27.9 pg (27.0-33.0); MCV 85 fL (80-95); MPV 9.6 fL (8.0-11.0); Monocytes % 8.4; Neutrophils % 68.9; Platelet Count 364 10^3/uL (130-400); RBC 5.23 10^6/uL (3.93-5.22); RDW 13.7 % (11.7-14.6); RDW-SD 42.4 fL; WBC 14.87 10^3/uL (4.4-10.8)
[2021-08-17 19:42] LABS: Absolute Basophil Count 0.07 10^3/uL (0.0-0.2); Absolute Eosinophil Count 0.16 10^3/uL (0.0-0.7); Absolute Neutrophil Count 10.25 10^3/uL (1.2-6.7)
[2021-08-18 09:05] LABS: Abs Immature Grans 0.06 10^3/uL (0.0-0.06); Absolute Eosinophil Count 0.18 10^3/uL (0.0-0.7); Absolute Neutrophil Count 7.22 10^3/uL (1.2-6.7); Basophils % 0.5; Eosinophils % 1.6; HCT 43.9 % (36.0-46.0); Immature Grans % 0.5; Lymphocytes % 25.3; MCH 27.6 pg (27.0-33.0); MCHC 31.9 % (32.0-36.0); MCV 86 fL (80-95); MPV 9.4 fL (8.0-11.0); Monocytes % 6.9; Neutrophils % 65.2; Platelet Count 336 10^3/uL (130-400); RBC 5.08 10^6/uL (3.93-5.22); RDW 13.7 % (11.7-14.6); RDW-SD 43.5 fL; WBC 11.08 10^3/uL (4.4-10.8)
[2021-08-18 09:09] LABS: Source Nasal/Nares
[2021-08-18 09:10] VITALS: BP 109/77; PULSE 85; RESP 16; TEMP 36.1; O2SAT 98
[2021-08-18 09:11] LABS: Absolute Basophil Count 0.06 10^3/uL (0.0-0.2); Absolute Monocyte Count 0.76 10^3/uL (0.1-0.8)
[2021-08-18 09:18] LABS: Anion Gap 6.7 mmol/L (3-11); BUN 11 mg/dL (7-18); C-Reactive Protein 1.29 mg/dL (0.0-0.3); CO2 29.3 mmol/L (21.0-32.0); CREATININE 0.7 mg/dL (0.55-1.02); Calcium 8.8 mg/dL (8.5-10.1); Chloride 104 mmol/L (98-107); Glucose 96 mg/dL (74-106); Magnesium 2.2 mg/dL (1.8-2.4); Potassium 4.2 mmol/L (3.5-5.1); Sodium 140 mmol/L (136-145)
[2021-08-18 09:45] LABS: Procalcitonin < 0.1 ng/mL
[2021-08-18 10:01] LABS: COVID-19 PCR Negative (Negative)
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
--- NOTE | 2021-08-18 11:01 | NUR.NOTE ---
Nursing Note: At approximately 1055 on 08/18/21, this RN answered a call from SANGEETHA Hartman at [facility]. Nurse to nurse report on the pt. was given. SANGEETHA Hartman was updated regarding pt.'s behavior/mentation, VS, pain level, head to toe assessment, psychiatric assessment (talking to herself, repeating certain phrases, etc.), pt.'s refusal to take medications, etc. SANGEETHA Hartman verbalized understanding and presented with a few questions that were answered. SANGEETHA Hartman requesting to have laboratory results faxed to [facility]. Per SANGEETHA Hartman, the [facility] will be arranging transport for the pt. and should be in contact with [facility]. The pt. will need to arrive by 1830 this evening, otherwise transport will have to happen tomorrow (08/19/21). RN will reassess as necessary.
--- NOTE | 2021-08-18 14:34 | CMDISCH_ITS ---
- If Service Date Differs Date of service: 08/18/21 Time of Service: 14:35 LACE Index Scoring Tool - Questions: Length of Stay (in days): 4 - 6 Acuity (Admit via E.D.?): Yes E.D. Visits: 1 - Answers: Total Score: 8 Risk of Readmission: Low Risk Care Management Discharge Reason for Hospitalization: Psychosis Discharge Plan: Nelson will discharge to [facility] via [facility]- coordinated by [facility] as Nelson is an involuntary patient. CM notified Nelson's mother Zenia, at her request. Zenia advised she would notify Nelson's father and follow up with [facility]: CM provided her the number for outreach. Patient/Family Education Needs: Review of transfer details. Family notification. Services Needed at Discharge: Psychiatric Facility ([facility] ), Transportation (Coordinated by [facility]) - Disposition Disposition: [facility] via of: [facility] ([facility] Funded )
== END 2021-08-18 13:52 | disposition short-term general hospital (02) ==
LOC: ER 08-16 13:06 → MS 08-16 13:12
PROVIDERS: Emergency Medicine; Nurse Practitioner Acute Care; Student in an Organized Health Care Education/Training Program; Admitting Provider Internal Medicine; Emergency Provider Physician Assistant; Visit Provider Internal Medicine
DX: F23 Brief psychotic disorder (principal); F30.8 Other manic episodes; Z20.822 Contact with and (suspected) exposure to COVID-19; F17.210 Nicotine dependence, cigarettes, uncomplicated; F11.11 Opioid abuse, in remission
CPT/HCPCS: 36415; 80048; 80053; 80307; 84145; 87635; Q3014; 80320; 80329; 81003; 83735; 84443; 85025; 86140; 99217; 99219; 99225; G0378